=== PATIENT | male | born 1975 | race Caucasian/White ===

== ENCOUNTER → 2018-04-30 | Outpatient (CLI) | payer OTHER ==
[~2018-04-30] VITALS: Ht 170.2 cm; Wt 89.5 kg
[~2018-04-30] MED LIST: ADDERALL XR20 MG PO; DESYREL50 MG PO; MAXALT10 M2 PO; ZOLOFT 50MG50 MG PO
[2018-04-30 13:45] VITALS: BP 140/90
== END ==
LOC: AMSURD 13:06
DX: G44.009 Cluster headache syndrome, unspecified, not intractable (principal)
CPT/HCPCS: J1200; J1885; J2405; J7030

== ENCOUNTER → 2018-05-04 | Outpatient (CLI) | payer OTHER ==
[~2018-05-04] VITALS: Ht 170.2 cm; Wt 89.5 kg
[2018-05-04 08:53] VITALS: BP 135/94
[2018-05-04 10:08] VITALS: BP 142/81
== END ==
LOC: AMSURD 08:44
DX: G44.009 Cluster headache syndrome, unspecified, not intractable (principal)

== ENCOUNTER → 2018-05-10 | Outpatient (CLI) | payer OTHER ==
[2018-05-04 10:08] VITALS: BP 142/81
[2018-05-10 12:47] LABS: EOS # 0.1 (0.04-0.40); EOS % 1.9 % (0.0-4.0); HEMATOCRIT 46.3 % (42.0-52.0); HEMOGLOBIN 16.1 g/dL (13.5-18.0); LYMPH# 1.9 (1.50-4.00); MEAN CELL VOLUME 92 fl (78-100); MEAN CORPUSCULAR HEMOGLOBIN 32 pg (27-31); MEAN CORPUSCULAR HGB CONC 35 g/dL (33-37); MEAN PLATELET VOLUME 11.1 fl (7.4-10.4); MONO # 0.7 (0.20-0.80); NEU # 3.7 (1.40-6.50); PLATELET COUNT 215 K/mm3 (130-400); RED BLOOD COUNT 5.05 M/mm3 (4.20-5.60); RED CELL DISTRIBUTION WIDTH 12.6 % (11.5-14.5); WHITE BLOOD COUNT 6.4 K/mm3 (4.8-10.8)
[2018-05-10 13:23] LABS: ALBUMIN 4.4 g/dL (3.5-5.0); BUN/CREATININE RATIO 20.2 (6.0-26.0); CALCIUM 9.3 mg/dL (8.4-10.2); POTASSIUM 4.6 mmol/L (3.6-5.0); TOTAL BILIRUBIN 0.6 mg/dL (0.2-1.3); TOTAL PROTEIN 7.1 g/dL (6.3-8.2)
[2018-05-10 14:02] LABS: ERYTHROCYTE SEDIMENTATION RATE 0 mm/hr (0-15)
[2018-05-10 22:26] LABS: CREATININE OTHER SOURCE 70 mg/dL (())
[2018-05-10 22:46] LABS: TESTOSTERONE 517 ng/dL (240-871)
== END ==
LOC: LAB 12:29
PROVIDERS: Internal Medicine
DX: Z00.00 Encounter for general adult medical examination without abnormal findings (principal); G43.801 Other migraine, not intractable, with status migrainosus

== ENCOUNTER → 2020-08-12 | Outpatient (CLI) | payer OTHER ==
[2018-05-04 10:08] VITALS: BP 142/81
== END ==
LOC: LAB 07:50
DX: R50.9 Fever, unspecified (principal); R53.83 Other fatigue; R52 Pain, unspecified; Z20.828 Contact with and (suspected) exposure to other viral communicable diseases

== ENCOUNTER → 2020-10-22 | Outpatient (CLI) | payer OTHER ==
[2018-05-04 10:08] VITALS: BP 142/81
[2020-10-22 09:06] LABS: EOS # 0.1 (0.04-0.40); EOS % 0.9 % (0.0-4.0); HEMOGLOBIN 14.2 g/dL (13.5-18.0); LYMPH# 1.8 (1.50-4.00); MEAN CELL VOLUME 102 fl (78-100); MEAN CORPUSCULAR HEMOGLOBIN 34 pg (27-31); MEAN CORPUSCULAR HGB CONC 33 g/dL (33-37); MEAN PLATELET VOLUME 11.2 fl (7.4-10.4); MONO # 0.5 (0.20-0.80); NEU # 3.1 (1.40-6.50); PLATELET COUNT 173 K/mm3 (130-400); RED BLOOD COUNT 4.21 M/mm3 (4.20-5.60); RED CELL DISTRIBUTION WIDTH 12.3 % (11.5-14.5); WHITE BLOOD COUNT 5.5 K/mm3 (4.8-10.8)
[2020-10-22 10:15] LABS: ERYTHROCYTE SEDIMENTATION RATE 0 mm/hr (0-15)
[2020-10-22 10:20] LABS: ALBUMIN 4.4 g/dL (3.5-5.0); POTASSIUM 4.1 mmol/L (3.5-5.1)
[2020-10-22 10:23] LABS: TOTAL PROTEIN 6.5 g/dL (6.4-8.3)
== END ==
LOC: LAB 08:45
PROVIDERS: Internal Medicine
DX: Z00.00 Encounter for general adult medical examination without abnormal findings (principal); Z12.5 Encounter for screening for malignant neoplasm of prostate

== ENCOUNTER → 2021-07-14 | Outpatient (CLI) | payer OTHER | LOC: RAD 08:04 | DX: M25.522 Pain in left elbow (principal) ==